=== PATIENT | male | born 1960 | race Caucasian/White ===

== ENCOUNTER → 2016-12-14 | Day surgery (SDC) | payer OTHER ==
[~2016-12-14] MED LIST: BACLOFEN20 M1 PO; GRALISE300 MG PO; HYDROCODON-ACE1 EAC5 PO; LAMOTRIGINE200 MG PO; MELOXICAM15 MG PO; NEURONTIN800 MG PO
--- NOTE | ~2016-12-14 | OR ---
Unit #: [id number] #: [id number] Patient: INO BAEZ [id number] [address] [place], [place] [address] [id number] O MR#: [id number] NAME: INO BAEZ ROOM: Date of Procedure: 12/14/2016 Admission Date: 12/14/2016 Surgeon: Gregory Coulter M.D. : 1960 Attending Physician: Gregory Coulter M.D. Referring Physician: Gregory Coulter M.D. OPERATIVE REPORT PREOPERATIVE DIAGNOSIS Chronic cervical radiculopathy, post-cervical fusion. POSTOPERATIVE DIAGNOSIS Chronic cervical radiculopathy, post-cervical fusion. PROCEDURES PERFORMED Placement of percutaneous spinal cord stimulator lead in the cervical spine with fluoroscopic guidance. ANESTHESIA MAC. PREOPERATIVE ANTIBIOTICS Ancef protocol. ESTIMATED BLOOD LOSS 5 mL. DESCRIPTION OF PROCEDURE The patient was placed in a prone position. Standard monitors were applied. Sterile prep and drape of the cervical and thoracic area were performed. The skin then just to the left of midline approximately at the T2 level was localized with 1% lidocaine. A stab incision was made with 11-blade. A 14-gauge curved introducer needle was then advanced via loss of resistance technique with fluoroscopic guidance. The patient had no complaints of pain or paresthesia. It was technically difficult. After confirming proper positioning in the epidural space, we attempted to place the stimulating electrode a little bit lateral to the right causing some stimulation to the patient's arm, so upon retracting the catheter, there was some clear CSF seen at the hub of the needle. We were unable to aspirate any of this presumed CSF. The needle was backed over few millimeters. Again, we were unable to aspirate dural puncture associated with placing the catheter. The needle was repositioned slightly medial and position checked with loss of resistance. There was no CSF on aspiration. The catheter was then threaded just a few centimeters into the cervical epidural space just slightly to the right of midline. At this position, we were able to get stimulation all painful areas. The catheter was then securely fastened using 2-0 silk and sterilely dressed. The patient was discharged to the recovery room where we will work on programming to assess the analgesia with the stimulator. [employer] compact electrode lead was #[id number], lot #[id number]. Unit #: [id number] #: [id number] Patient: INO BAEZ Dictated by... Ryan Noriega/beau TD: 12/14/2016 23:43 JOB #: [id number] OPERATIVE REPORT Page 1 of 1 X Gregory Coulter MD X PROCEDURE OPERATIVE NOTE
--- NOTE | ~2016-12-14 | CR62 ---
[facility] A Service of [facility] RADIOLOGY TEXT RESULTS PATIENT: INO BAEZ LOCATION: [facility] : 60 UNIT #: [id number] AGE: [address]: Gregory Coulter MD SEX: M ORDER DR: [id number] [facility] [address]. [place], [place] [address] [id number] O MR#: [id number] Acc #: [id number] NAME: INO BAEZ : 1960 SEX: M STUDY DATE/TIME: 12/14/2016 11:14 UNIT: [facility] ROOM: STUDY DESCRIPTION: CR Cervical Spine [place] Attending Physician: Gregory Coulter M.D. Referring Physician: Gregory Coulter M.D. Ordering Physician: Gregory Coulter M.D. Primary Care Physician: Primary Care Physician No MEDICAL IMAGING REPORT This report is preliminary unless electronic signature is present EXAM Fluoroscopy during cervical spine surgery 12/14/2016 HISTORY Fluoroscopy during cervical spine surgery. REPORT Fluoroscopy was provided by x-ray technologist in the OR during cervical spine surgery. Fluoroscopy time 0.45 minutes. A single fluoroscopic image was recorded for documentation purposes. Please see operative note for details. Dictated by... Jovanny Bruno M.D. THIS IS AN ELECTRONICALLY VERIFIED REPORT Jovanny Bruno M.D. at 12/14/2016 3:58 PM SANDRA/hamida TD: 12/14/2016 14:37 JOB #: [id number] MEDICAL IMAGING REPORT Page 1 of 1 COPY
== END | disposition home or self-care (01) ==
LOC: CSUR 08:43
DX: M54.12 Radiculopathy, cervical region (principal); Z98.1 Arthrodesis status
CPT/HCPCS: 72020; 77003; C1778; J0690; J2250; J3010

== ENCOUNTER → 2017-01-18 | Day surgery (SDC) | payer OTHER ==
--- NOTE | ~2017-01-18 | OR ---
Unit #: [id number] #: [id number] Patient: INO BAEZ [id number] [address] [place], [place] [address] [id number] O MR#: [id number] NAME: INO BAEZ ROOM: Date of Procedure: 01/18/2017 Admission Date: 01/18/2017 Surgeon: Gregory Coulter M.D. : 1960 Attending Physician: Gregory Coulter M.D. Primary Care Physician: Primary Care Physician No OPERATIVE REPORT PREOPERATIVE DIAGNOSIS Chronic cervical radiculopathy, post-cervical fusion. POSTOPERATIVE DIAGNOSIS Chronic cervical radiculopathy, post-cervical fusion. PROCEDURES PERFORMED Placement of percutaneous spinal cord stimulator leads cervically, placement of IPG. ANESTHESIA MAC and general. ESTIMATED BLOOD LOSS 10 mL. PREOPERATIVE ANTIBIOTICS Keflex. DESCRIPTION OF PROCEDURE The patient was placed initially in a prone position. Standard monitors were applied. Sterile prep and drape of the upper thoracic and cervical area were performed. The skin just to the left of midline at the C7-T1 level was localized with 1% lidocaine. A 14-gauge introducer needle was then advanced via slight left paramedian approach and loss of resistance technique in toward the epidural space. Great care was taken due to the patient's prior cervical thoracic surgery for a syrinx. The patient had no pain during needle advancement. After obtaining loss of resistance technique and with negative aspiration, the stimulating catheter was advanced. There was some resistance and intermittent paresthesias, which quickly resolved. After approximately a 1-1/2 of the stimulating electrode was passed to the distal end of the needle, there was some clear fluid seen to come up around the edge of the needle. The catheter was advanced little more. We stimulated at this position. Stimulation was achieved with very low amplitudes indicating a high possibility of an intrathecal catheter placement. The catheter and needle were removed. The 14-gauge introducer needle was then again advanced via slightly different path and left paramedian approach. After entering the epidural space, again there was negative aspiration. At this time, we were able to thread the catheter cephalad with no evidence of CSF. The catheter stimulation was achieved with 5 and 6 electrodes covering all the patient's painful areas. The catheter was then securely fastened using Unit #: [id number] #: [id number] Patient: INO BAEZ 2-0 silk and the catheter anchoring system included in the kit. The catheter was then right after the sterile towel and the patient was asked to move to a right lateral decubitus position. Care was taken to keep the surgical field sterile. Once the patient was repositioned, again while keeping the catheter in surgical field wrapped in a sterile towel, the drapes were removed and the patient was re-prepped and draped. After this was done, the IPG pocket was created in the patient's left buttock using sharp and then Bovie dissection. After the pocket was made, it was determined that the catheter passer was not long enough to pass in the cervical to the lumbar level, so 1-inch incision was made about 4 or 5 inches above the pump pocket site. The catheter passer was advanced to the cervical incision without problem. The catheter was then threaded down to the stab incision. The passer was removed and again placed from the pocket to the stab incision. The wire was then brought down into the IPG pocket. A stress reduction loop was placed in the cervical spine. The area was copiously irrigated with irrigant and closed in two layers with 2-0 Vicryl and then michelle were used at the skin. The IPG pocket was also extensively irrigated with irrigant as well as a stab incision. After checking impedances, the wounds were both closed in multiple layers with 2-0 Vicryl. The skin was then closed with michelle. At each of the incisions during the procedure, a 0.5% Marcaine with epinephrine was used. Sterile dressings were applied and the patient was discharged to the recovery room in stable condition. The lead kit used was lot #[id number]. The IPG was serial #[id number]. Dictated by... Ryan Noriega/beau TD: 01/18/2017 23:51 JOB #: [id number] OPERATIVE REPORT Page 1 of 1 X Gregory Coulter MD X PROCEDURE OPERATIVE NOTE
== END | disposition home or self-care (01) ==
LOC: CSUR 08:19
DX: M54.12 Radiculopathy, cervical region (principal); Z98.1 Arthrodesis status
CPT/HCPCS: 77003; C1778; C1779; C1820; J0690; J2250; J2405; J3010